=== PATIENT | male | born 1990 ===

== ENCOUNTER 2022-06-14 23:57 | Emergency (ER) | payer MEDICAID ==
[~2022-06-14] VITALS: Ht 180.3 cm; Wt 74.7 kg
[2022-06-15 00:04] VITALS: BP 103/62
[2022-06-15] MEDS ORDERED: IBUP-2029 MT (01:48)
[2022-06-15] MEDS ORDERED: GABA300C MT (01:48)
[2022-06-15] MEDS ORDERED: ACYC200C31 MT (01:48)
== END 2022-06-15 03:22 | disposition home or self-care (01) ==
LOC: ER 23:57
DX: B02.9 Zoster without complications (principal); Z88.0 Allergy status to penicillin
CPT/HCPCS: 99281